=== PATIENT | male | born 1935 | race Caucasian/White ===

== ENCOUNTER → 2019-02-23 | Outpatient (CLI) | payer MEDICARE ==
[~2019-02-23] MED LIST: OMNIPAQUE 350 MG/ML, 150 ML BOTTLE ONE
== END | disposition home or self-care (01) ==
LOC: CVU 10:19
PROVIDERS: ATTEND Internal Medicine Cardiovascular Disease
DX: I65.23 Occlusion and stenosis of bilateral carotid arteries (principal); I71.4 Abdominal aortic aneurysm, without rupture; K76.0 Fatty (change of) liver, not elsewhere classified; K76.89 Other specified diseases of liver; N28.1 Cyst of kidney, acquired; I70.0 Atherosclerosis of aorta; I10 Essential (primary) hypertension; E78.5 Hyperlipidemia, unspecified; Z87.891 Personal history of nicotine dependence
CPT/HCPCS: 71275; 74174; 93880; 94060; 94726; 94729; Q9967

== ENCOUNTER 2019-03-07 07:37 | Inpatient (IN) | payer MEDICARE ==
[~2019-03-07] VITALS: Ht 175.3 cm; Wt 72.1 kg
[~2019-03-07 07:37] MED LIST changes: +CHLORHEXIDINE 15 ML UDC ONE; -OMNIPAQUE 350 MG/ML, 150 ML BOTTLE ONE
[2019-03-07] MEDS ORDERED: SODIUM CHLORIDE 0.9% 1,000 ML IV ONE (08:02)
[2019-03-07] MEDS ORDERED: CHLORHEXIDINE 15 ML UDC MM PRN (08:30)
[2019-03-07] MEDS ORDERED: PLEASE ENTER HEIGHT AND WEIGHT MC SCH (08:30)
[2019-03-07] MEDS ORDERED: ONDANSETRON 2MG/ML, 2ML IVPush PRN ×2 (08:30→11:00)
[2019-03-07 08:44] LABS: ALANINE AMINOTRANSFERASE 34 U/L (12-78); ALBUMIN 3.8 g/dL (3.4-5.0); ANION GAP 4 mmol/L (5-15); CALCIUM 9.1 mg/dL (8.5-10.1); CHLORIDE 111 mmol/L (98-107)
[2019-03-07 08:46] LABS: ALKALINE PHOSPHATASE 66 U/L (45-117); BILIRUBIN,TOTAL 0.6 mg/dL (0.2-1.0); TOTAL PROTEIN 7.2 g/dL (6.4-8.2)
[2019-03-07 08:57] LABS: INTERNATIONAL NORMALIZED RATIO 0.95 (0.93-1.1)
[2019-03-07] MEDS ORDERED: FENTANYL PF 250 MCG/5ML ONE (09:17)
[2019-03-07 09:26] LABS: BASOPHILS # (AUTO) 0.05 x10^3/uL (0-0.1); BASOPHILS % (AUTO) 1 % (0-1); EOSINOPHILS # (AUTO) 0.27 x10^3/uL (0-0.4); EOSINOPHILS % (AUTO) 5 % (1-7); LYMPHOCYTES # (AUTO) 1.82 x10^3/uL (1-3.4); LYMPHOCYTES % (AUTO) 36 % (22-44); MD NO; MEAN CORPUSCULAR HEMOGLOBIN 33.8 pg (27.5-34.5); MEAN CORPUSCULAR HGB CONC 33.9 g/dL (33.2-36.2); MEAN CORPUSCULAR VOLUME 99.8 fL (81-97); MEAN PLATELET VOLUME 8.2 fL (7.4-10.4); MONOCYTES # (AUTO) 0.47 x10^3/uL (0.2-0.8); MONOCYTES % (AUTO) 9 % (2-9); NEUTROPHILS # (AUTO) 2.52 x10^3/uL (1.8-6.8); NEUTROPHILS % (AUTO) 49 % (42-75); PLATELET COUNT 169 x10^3/uL (130-400); RED BLOOD COUNT 4.04 x10^6/uL (4.38-5.82)
[2019-03-07] MEDS ORDERED: hydrALAzine 20 MG/ML, 1ML IVPush PRN (11:00)
[2019-03-07] MEDS ORDERED: LABETALOL 20 MG/4 ML IVPush PRN (11:00)
[2019-03-07] MEDS ORDERED: CLOPIDOGREL 300 MG TABLET PO ONE (11:00)
[2019-03-07] MEDS ORDERED: ACETAMINOPHEN 325 MG TABLET PO PRN (11:00)
[2019-03-07] MEDS: ASPIRIN 81 MG TABLET EC PO SCH (11:00)
[2019-03-07 14:27] VITALS: BP 113/54
[2019-03-07] MEDS ORDERED: NIAC500T4 PO (15:14)
[2019-03-07] MEDS ORDERED: QUIN40TA PO (15:14)
[2019-03-07] MEDS ORDERED: ATOR20TA37 PO (15:14)
[2019-03-07] MEDS ORDERED: POTA10TA6 PO (15:14)
[2019-03-07] MEDS ORDERED: MULT-658 PO (15:14)
[2019-03-07] MEDS ORDERED: ASPI81TA45 PO (15:14)
[2019-03-07] MEDS ORDERED: FURO20TA3 PO (15:14)
[2019-03-07] MEDS ORDERED: METO25TA91 PO (15:14)
[2019-03-07 19:39] VITALS: BP 113/62
[2019-03-08 02:08] VITALS: BP 109/55
[2019-03-08 05:36] LABS: BASOPHILS % (AUTO) 0 % (0-1); EOSINOPHILS % (AUTO) 0 % (1-7); LYMPHOCYTES # (AUTO) 1.06 x10^3/uL (1-3.4); LYMPHOCYTES % (AUTO) 10 % (22-44); MD NO; MEAN CORPUSCULAR HEMOGLOBIN 34.3 pg (27.5-34.5); MEAN CORPUSCULAR HGB CONC 34.3 g/dL (33.2-36.2); MEAN CORPUSCULAR VOLUME 99.9 fL (81-97); MEAN PLATELET VOLUME 8.1 fL (7.4-10.4); MONOCYTES % (AUTO) 6 % (2-9); NEUTROPHILS # (AUTO) 8.56 x10^3/uL (1.8-6.8); NEUTROPHILS % (AUTO) 84 % (42-75); PLATELET COUNT 123 x10^3/uL (130-400); RED BLOOD COUNT 3.24 x10^6/uL (4.38-5.82); RED CELL DISTRIBUTION WIDTH 13.7 % (9.4-14.8)
[2019-03-08 05:40] LABS: CHLORIDE 111 mmol/L (98-107)
[2019-03-08 05:44] LABS: ANION GAP 6 mmol/L (5-15); CALCIUM 8.5 mg/dL (8.5-10.1); CREATININE 0.72 mg/dL (0.7-1.3)
[2019-03-08 07:35] VITALS: BP 115/49
[2019-03-08] MEDS ORDERED: POTASSIUM CHLORIDE 10 MEQ TABLET.ER PO SCH (08:00)
[2019-03-08] MEDS ORDERED: ATORVASTATIN 20 MG TABLET PO SCH (08:00)
[2019-03-08] MEDS ORDERED: METOPROLOL SUCCINATE 25 MG TAB.ER.24H PO SCH (08:00)
[2019-03-08] MEDS ORDERED: MULTIVITAMIN 1 TABLET PO SCH (09:00)
[2019-03-08] MEDS: FUROSEMIDE 20 MG TABLET PO SCH ×2 (09:00→09:12)
[2019-03-08] MEDS ORDERED: QUINAPRIL 20MG TABLET PO SCH (09:00)
[2019-03-08] MEDS ORDERED: CLOPIDOGREL 75 MG TABLET PO SCH (09:00)
[2019-03-08] MEDS ORDERED: NIACIN 500 MG TABLET.ER PO SCH (09:00)
[2019-03-08] MEDS: ASPIRIN 81 MG TABLET EC PO SCH (09:12)
[2019-03-08] MEDS ORDERED: PROPOFOL 10 MG/ML, 20ML ONE (09:28)
[2019-03-08] MEDS ORDERED: DEXAMETHASONE 4 MG/ML, 1ML ONE (09:28)
[2019-03-08] MEDS ORDERED: CEFAZOLIN 1,000 MG ONE (09:28)
[2019-03-08] MEDS ORDERED: ONDANSETRON 2MG/ML, 2ML ONE (09:28)
[2019-03-08] MEDS ORDERED: PHENYLEPHRINE 10 MG/ML ONE (09:28)
[2019-03-08] MEDS ORDERED: SUCCINYLCHOLINE 20 MG/ML, 10ML ONE (09:28)
[2019-03-08] MEDS ORDERED: ROCURONIUM 10 MG/ML,10ML ONE (09:28)
[2019-03-08 12:22] VITALS: BP 127/62
[2019-03-08] MEDS ORDERED: CLOP75TA PO (14:20)
== END 2019-03-08 14:25 | disposition home or self-care (01) | DRG 266 ==
LOC: ORIP 07:37 → CCU 10:53 → 5SO 14:44 → DCLOUNGE 03-08 14:00
PROVIDERS: ADMIT Internal Medicine Cardiovascular Disease; ATTEND Internal Medicine Cardiovascular Disease
PROC: B24BZZ4 Ultrasonography of Heart with Aorta, Transesophageal (ICD-10-PCS; 2019-03-07)
PROC: 03HY32Z Insertion of Monitoring Device into Upper Artery, Percutaneous Approach (ICD-10-PCS; 2019-03-07)
PROC: 02RF38Z Replacement of Aortic Valve with Zooplastic Tissue, Percutaneous Approach (ICD-10-PCS; principal; 2019-03-07 12:00)
DX: I35.0 Nonrheumatic aortic (valve) stenosis (principal); Z00.6 Encounter for examination for normal comparison and control in clinical research program; I50.33 Acute on chronic diastolic (congestive) heart failure; I11.0 Hypertensive heart disease with heart failure; E78.5 Hyperlipidemia, unspecified; I45.9 Conduction disorder, unspecified; Z87.01 Personal history of pneumonia (recurrent); Z87.891 Personal history of nicotine dependence; Z82.49 Family history of ischemic heart disease and other diseases of the circulatory system; Z88.0 Allergy status to penicillin; Z88.2 Allergy status to sulfonamides
CPT/HCPCS: 33361; 36415; 80048; 80053; 83880; 85025; 85347; 85610; 85730; 86850; 86900; 86923; 87081; 93005; 93306; 93312; 93321; 93325; 93355; C1760; C1769; C1894; G0378; J0690; J1100; J2405; J2704; J3010; J0330; J0360; J2370; Q9967

== ENCOUNTER 2019-04-03 08:43 | Outpatient (CLI) | payer MEDICARE ==
[~2019-04-03 08:43] MED LIST changes: +ASPI81TA45 PO; +ATOR20TA37 PO; -CHLORHEXIDINE 15 ML UDC ONE; +CLOP75TA PO; +FURO20TA3 PO; +METO25TA91 PO; +MULT-658 PO; +NIAC500T4 PO; +POTA10TA6 PO; +QUIN40TA PO
== END 2019-04-03 23:59 | disposition home or self-care (01) ==
LOC: CVU 08:43
PROVIDERS: ATTEND Internal Medicine Cardiovascular Disease
DX: I34.0 Nonrheumatic mitral (valve) insufficiency (principal)
CPT/HCPCS: 0399T; 93306

== ENCOUNTER 2020-01-05 12:52 | Observation (INO) | payer MEDICARE ==
[~2020-01-05] VITALS: Ht 175.3 cm; Wt 81.5 kg
[~2020-01-05 12:52] MED LIST changes: +NIAC-17 PO; -NIAC500T4 PO
[2020-01-05] MEDS ORDERED: SODIUM CHLORIDE FLUSH 10ML SYR IVF ONE (14:00)
[2020-01-05 14:12] LABS: BASOPHILS # (AUTO) 0.04 x10^3/uL (0-0.1); BASOPHILS % (AUTO) 1 % (0-1); EOSINOPHILS # (AUTO) 0.16 x10^3/uL (0-0.4); EOSINOPHILS % (AUTO) 3 % (1-7); LYMPHOCYTES # (AUTO) 1.69 x10^3/uL (1-3.4); LYMPHOCYTES % (AUTO) 28 % (22-44); MD NO; MEAN CORPUSCULAR HEMOGLOBIN 33.2 pg (27.5-34.5); MEAN CORPUSCULAR HGB CONC 34.1 g/dL (33.2-36.2); MEAN CORPUSCULAR VOLUME 97.4 fL (81-97); MEAN PLATELET VOLUME 7.6 fL (7.4-10.4); MONOCYTES # (AUTO) 0.52 x10^3/uL (0.2-0.8); MONOCYTES % (AUTO) 9 % (2-9); NEUTROPHILS # (AUTO) 3.54 x10^3/uL (1.8-6.8); NEUTROPHILS % (AUTO) 60 % (42-75); PLATELET COUNT 180 x10^3/uL (130-400); RED BLOOD COUNT 4.55 x10^6/uL (4.38-5.82); RED CELL DISTRIBUTION WIDTH 13.7 % (9.4-14.8)
[2020-01-05 14:19] LABS: ALANINE AMINOTRANSFERASE 47 U/L (12-78); ALBUMIN 3.9 g/dL (3.4-5.0); ANION GAP 6 mmol/L (5-15); CALCIUM 9.2 mg/dL (8.5-10.1); CHLORIDE 108 mmol/L (98-107); CREATININE 0.97 mg/dL (0.7-1.3)
[2020-01-05 14:29] LABS: ALKALINE PHOSPHATASE 77 U/L (45-117); BILIRUBIN,TOTAL 0.4 mg/dL (0.2-1.0); TOTAL PROTEIN 7.4 g/dL (6.4-8.2)
[2020-01-05] MEDS ORDERED: FENTANYL PF 100 MCG/2ML ONE (14:47)
[2020-01-05] MEDS ORDERED: MIDAZOLAM 1 MG/ML, 2ML ONE ×3 (14:47→15:42)
[2020-01-05] MEDS ORDERED: LIDOCAINE 1%, 20ML ONE (14:48)
[2020-01-05] MEDS ORDERED: VANCOMYCIN PMX 1GM/200ML 200 ML ONE (14:48)
[2020-01-05] MEDS ORDERED: VANCOMYCIN 500 MG ONE (14:48)
--- NOTE | 2020-01-05 14:54 | NUR ---
to laborer [employer]
[2020-01-05] MEDS ORDERED: VANCOMYCIN PMX 1GM/200ML 200 ML IVPB ONE (15:00)
[2020-01-05] MEDS: SODIUM CHLORIDE 0.9% 1,000 ML IV SCH (16:00)
[2020-01-05 16:48] VITALS: BP 141/62
[2020-01-05] MEDS ORDERED: HOLD MEDICATION MC PRN (17:00)
[2020-01-05] MEDS ORDERED: ACETAMINOPHEN 325 MG TABLET PO PRN (17:00)
[2020-01-05] MEDS ORDERED: HYDROcodone/APAP 5/325 TABLET PO PRN (17:00)
[2020-01-05] MEDS ORDERED: ONDANSETRON 2MG/ML, 2ML IV PRN (17:00)
[2020-01-05 20:31] VITALS: BP 136/65
[2020-01-05] MEDS: SODIUM CHLORIDE FLUSH 10ML SYR IVF SCH (20:33)
[2020-01-05] MEDS ORDERED: ATORVASTATIN 20 MG TABLET PO SCH (21:00)
[2020-01-06 02:37] VITALS: BP 124/57
[2020-01-06 07:16] VITALS: BP 151/70
[2020-01-06] MEDS: SODIUM CHLORIDE 0.9% 1,000 ML IV SCH ×2 (07:38)
[2020-01-06] MEDS: SODIUM CHLORIDE FLUSH 10ML SYR IVF SCH (08:05)
[2020-01-06] MEDS ORDERED: CLOPIDOGREL 75 MG TABLET PO SCH (09:00)
[2020-01-06] MEDS ORDERED: MULTIVITAMIN 1 TABLET PO SCH (09:00)
[2020-01-06] MEDS ORDERED: ASPIRIN 81 MG TABLET EC PO SCH (09:00)
[2020-01-06] MEDS ORDERED: QUINAPRIL 20MG TABLET PO SCH (09:00)
[2020-01-06] MEDS ORDERED: POTASSIUM CHLORIDE 10 MEQ TABLET.ER PO SCH (09:00)
[2020-01-06] MEDS ORDERED: METOPROLOL SUCCINATE 25 MG TAB.ER.24H PO SCH (09:00)
[2020-01-06] MEDS ORDERED: NIACIN 500 MG TABLET.ER PO SCH (09:00)
[2020-01-06] MEDS ORDERED: FUROSEMIDE 20 MG TABLET PO SCH (09:00)
== END 2020-01-06 11:59 | disposition home or self-care (01) ==
LOC: ED 14:20 → INTOOBSV 14:49 → EDIP 14:49 → OBSVTOIN 14:49 → 5SO 16:36 → DCLOUNGE 01-06 11:48
PROVIDERS: ADMIT Internal Medicine Cardiovascular Disease; ATTEND Internal Medicine Cardiovascular Disease
DX: I44.2 Atrioventricular block, complete (principal); I50.33 Acute on chronic diastolic (congestive) heart failure; I35.0 Nonrheumatic aortic (valve) stenosis; E78.5 Hyperlipidemia, unspecified; I11.0 Hypertensive heart disease with heart failure; Z95.2 Presence of prosthetic heart valve; Z88.0 Allergy status to penicillin; Z88.2 Allergy status to sulfonamides
CPT/HCPCS: 33208; 36415; 71045; 80053; 83735; 84443; 85025; 93005; 99156; 99157; 99285; C1779; C1785; C1892; G0378; J2250; J3010; J3370; J3490

== ENCOUNTER → 2020-04-23 | Outpatient (CLI) | payer MEDICARE | END | disposition home or self-care (01) | LOC: CVU 10:36 | PROVIDERS: ATTEND Internal Medicine Cardiovascular Disease | DX: I34.8 Other nonrheumatic mitral valve disorders (principal); R06.02 Shortness of breath; I65.29 Occlusion and stenosis of unspecified carotid artery | CPT/HCPCS: 93306 ==